=== PATIENT | female | born 1990 ===

== ENCOUNTER 2016-11-03 20:38 | Emergency (ER) | payer SELFPAY ==
[~2016-11-03] VITALS: Ht 157.5 cm; Wt 54.5 kg
--- OUTSIDE RECORDS SUMMARY | 2016-11-03 20:44 | XMS REPORT | Summary of Care ---
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 Unavailable Unavailable Constanza Brush APRN Unavailable Unavailable Ludivina Sullivan PP Unavailable Unavailable Unavailable Functional Status Functional Status Health Issues Name Dates Details Functional status health issues are not documented Status: Cognitive Status Health Issues Name Dates Details Cognitive status health issues are not documented Status: Problems Name Dates Details Screening examination for venereal disease (V74.5, Z11.3) Status: Active Acute pharyngitis (462, J02.9) Status: Active Dysuria (788.1, R30.0) Status: Active Urinary tract infection (599.0, N39.0) Status: Active Acute sinusitis (461.9, J01.90) Status: Active Medications Name Dates Details Sprintec 28 0.25-35 MG-MCG Oral Tablet TAKE 1 TABLET DAILY DIRECTED. Quantity: 1 Refills: 12 Margo Martin M.D. Started 12-May-2012 [id number] Disp Pack Amoxicillin-Pot Clavulanate 875-125 MG Oral Tablet 1 tablet BID x 10 days Quantity: 20 Refills: 0 Constanza Brush APRN Started 28-Feb-2014 Active Allergies and Adverse Reactions Name Dates Details No Known Drug Allergies Status: Active Past Medical History Name Dates Details History of Supervision of normal (V22.1, Z34.90) Status: Resolved Procedures Procedure Dates Details History of Obstetrical Surgery Completed:29-Mar-2012 Procedures not documented Immunization Name Dates Details Immunizations not documented Social History Smoking StatusUnknown if ever smoked Vital Signs Date Test Result Details No Known Vitals to report Results Date Description Value Details Results not documented Plan of Care Planned Observations Name Dates Details Planned Goals not documented Goal Instructions Instructions not documented Encounters Appointment; Constanza Brush Encounter Diagnosis: Problem not documented On 28-Feb-2014 15:35 Appointment; Consuelo Ribera Encounter Diagnosis: Problem not documented On 21-Nov-2013 08:35 Appointment; Consuelo Ribera Encounter Diagnosis: Problem not documented On 20-Oct-2013 15:05 Appointment; Consuelo Ribera Encounter Diagnosis: Problem not documented On 13-Sep-2013 10:10 Appointment; Consuelo Ribera Encounter Diagnosis: Problem not documented On 10-Jun-2013 08:50 Appointment; Margo Martin Encounter Diagnosis: Problem not documented On 18-May-2013 09:45
[2016-11-03] MEDS ORDERED: FERR325T36 PO (20:51)
--- NOTE | 2016-11-03 21:27 | Diagnostic Imaging Report ---
INDICATION: Fall, hit head, trauma. TECHNIQUE: AP, lateral and odontoid views cervical spine.. CORRELATION STUDY: None FINDINGS: The cervical spinal alignment is anatomic. Cervical vertebral body heights and disc spaces overall are fairly well maintained. Lateral masses of C1 and C2 aligned, odontoid intact. Prevertebral soft tissues unremarkable. Examination partially degraded by patient motion artifact. IMPRESSION: 1. Negative for acute findings of the cervical spine. Dictated by: Dictated on workstation # [id number]
[2016-11-03] MEDS ORDERED: ACETAMINOPHEN 500 MG TAB (TYLENOL) PO ONE (21:35)
--- NOTE | 2016-11-03 21:35 | NUR ---
C-collar removed by Dr. Ferrara.
[2016-11-03 21:48] LABS: ALBUMIN 4.6 g/dL (3.4-5.0); ANION GAP 17.4 MEQ/L (3-15); CALCULATED IONIZED CALCIUM 3.7 mg/dL (3.8-4.6); TOTAL PROTEIN 8.5 g/dL (6.4-8.5)
[2016-11-03 21:51] LABS: BASOPHILS % (AUTO) 0 % (0-2); EOSINOPHILS # (AUTO) 0.1 10^3uL; EOSINOPHILS % (AUTO) 1 % (0-4); LYMPHOCYTES # (AUTO) 2.4 X10^3; MEAN PLATELET VOLUME 9.6 FL (6.0-9.5); MONOCYTES # (AUTO) 1.4 X10^3; MONOCYTES % (AUTO) 13 % (3-11); NEUTROPHILS # (AUTO) 6.4 X10^3; NEUTROPHILS % (AUTO) 62 % (51-67); PLATELET COUNT 381 10^3uL (150-450); WHITE BLOOD COUNT 10.31 10^3uL (4.0-11.0)
[2016-11-03 21:58] LABS: MEAN CORPUSCULAR HEMOGLOBIN 18.6 PG (26.0-34.0); MEAN CORPUSCULAR HGB CONC 31.1 g/dL (31.0-37.0); MEAN CORPUSCULAR VOLUME 60 FL (80-100)
[2016-11-03 22:00] LABS: BILIRUBIN,URINE Negative (Negative); CLARITY,URINE Clear; COLOR,URINE Yellow; GLUCOSE, URINE (UA) Negative (Negative); LEUKOCYTE ESTERASE ,URINE Negative (Negative); PH,URINE 5.5 (5.0 - 8.0); UROBILINOGEN,URINE 0.2 mg/dL (0.2-1.0)
[2016-11-03 22:19] LABS: RBC,URINE 0-2 /HPF; URINE CENTRIFUGED VOLUME 12 mL
[2016-11-03 22:42] VITALS: BP 121/82
== END 2016-11-03 23:15 | disposition home or self-care (01) ==
LOC: ED 20:40
DX: R55 Syncope and collapse (principal)
CPT/HCPCS: 36415; 72040; 80053; 81003; 81015; 84703; 85025; 93005; 93010; 99282; 99285

== ENCOUNTER → 2016-11-03 | Outpatient (CLI) | payer SELFPAY ==
[~2016-11-03] MED LIST: FERR325T36 PO
== END ==
LOC: EMS 20:30
PROVIDERS: ATTEND Emergency Medicine
DX: R55 Syncope and collapse (principal); R51 Headache